=== PATIENT | male | born 1965 | race Two or more races ===

== ENCOUNTER 2017-03-19 20:15 | Emergency (ER) ==
[2017-03-19 20:28] VITALS: TEMP 99; BMI 24.7
--- NOTE | 2017-03-19 20:51 | ED.PDOC ---
General ED Provider: Dr. ADAL JARRETT Chief Complaint: Ankle Pain/Injury Stated Complaint: Reports a 5 day history of right ankle pain not improving with Tylenol. Time Seen by Physician: 20:49 Mode of Arrival: Walk-In Information Source: Patient Exam Limitations: No limitations Primary Care Provider: NILSON ULRICH Nursing and Triage Documentation Reviewed and Agree: Yes Musculoskeletal Complaint Exam - Ankle/Foot Complaint/Exam Location of Injury: Reports: Right, Ankle Mechanism of Injury: Reports: No known trauma Onset/Duration: 5 days Symptoms Are: Reports: Still present Initial Severity: Moderate Current Severity: Moderate Location: Reports: Discrete (posterior right malleolus ) Character: Reports: Aching, Throbbing Alleviating: Reports: Rest Aggravating: Reports: Movement, Weight bearing Able to Bear Weight: Yes Associated Signs and Symptoms: Reports: Swelling. Denies: Redness, Bruising, Fever, Weakness, Numbness Related History: Reports: Similar episode Gout Risk Factors: Reports: >40 years old, Male, Hyperlipidemia Related Surgical History: Reports: None Lower Extremity Findings: Present: Swelling, Tenderness, Limited range of motion. Absent: Laceration Achilles Tendon Abnormality: No Tenderness: Present: Lateral malleolus Limited Range of Motion: Present: Inversion, Plantarflexion Ankle/Foot Picture: 1 - swelling and tenderness to palpation Review of Systems - Review Of Systems Constitutional: Reports: No symptoms Eyes: Reports: No symptoms Ears, Nose, Mouth, Throat: Reports: No symptoms Respiratory: Reports: No symptoms Cardiac: Reports: No symptoms GI: Reports: No symptoms Musculoskeletal: Reports: Gout, Joint pain, Joint swelling Neurological: Reports: No symptoms Endocrine: Reports: No symptoms Hematologic/Lymphatic: Reports: No symptoms All Other Systems: Reviewed and Negative Past Medical History - Past Medical History Endocrine: Reports: Dyslipidemia Cardiovascular: Reports: Hypertension Respiratory: Reports: None Hematological: Reports: None Gastrointestinal: Reports: None Genitourinary: Reports: None Neuro/Psych: Reports: None Musculoskeletal: Reports: Gout Cancer: Reports: None - Surgical History General Surgical History: Reports: None - Family History Family History: Reports: Unknown - Social History Smoking Status: Never smoker Hx Substance Use: No Alcohol Screening: Occasionally - Immunizations Tetanus Shot up to Date: Yes Physical Exam - Physical Exam Appearance: Well-appearing, Well-nourished Pain Distress: Mild Eyes: GINO, EOMI, Conjunctiva clear ENT: Ears normal, Nose normal, Oropharynx normal Neck: Supple Respiratory: Airway patent, Breath sounds clear, Breath sounds equal, Respirations nonlabored Cardiovascular: RRR, Pulses normal, No rub, No murmur GI/: Soft, Nontender, No masses, Bowel sounds normal, No Organomegaly Musculoskeletal: Normal strength, No calf tenderness, Limited ROM, Edema (right ankle. ) Skin: Warm, Dry Neurological: Sensation intact, Motor intact, Reflexes intact, Cranial nerves intact, Alert, Oriented Psychiatric: Affect appropriate, Mood appropriate Interpretation - Radiology Interpretation Radiology Interpretation By: Radiologist Radiology Results: Negative Critical Care Note - Critical Care Note Total Time (mins): 0 Course - Course Orders, Labs, Meds: Orders Category Date Time Status ANKLE, RIGHT MIN 3 VIEWS Stat RADS 03/19/17 20:29 Taken FOOT, RIGHT 3 VIEWS Stat RADS 03/19/17 20:29 Taken Vital Signs: Temp Pulse Resp BP Pulse Ox 03/19/17 20:15 99 F 87 18 168/105 H 97 Departure - Departure Time of Disposition: 21:02 Disposition: HOME SELF-CARE Discharge Problem: Gout attack Qualifiers: Gout site: ankle Gout etiology: unspecified cause Laterality: right Qualifier Code: (M10.9) Gout, unspecified Instructions: Gout (ED) Condition: Stable Pt referred to PMD for follow-up: Yes Additional Instructions: Take Indocin as needed for pain Follow up with PCP in 3 days Prescriptions: Indomethacin 50 mg PO TID PRN #30 capsule PRN Reason: Foot pain Allergies/Adverse Reactions: Allergies No Known Drug Allergies Adverse Reaction (Verified 03/19/17 20:28) Home Medications: Ambulatory Orders Indomethacin 50 mg PO TID PRN #30 capsule 03/19/17 Disposition Discussed With: Patient, Family
--- NOTE | 2017-03-19 20:53 | DI ---
EXAM: Three views of the right ankle. History: Right ankle and foot pain. Findings: No acute fracture or dislocation. No abnormal calcifications or radiopaque foreign almaz s. Joint spaces are preserved. Question ankle joint effusion Impression: No acute osseous abnormality. Question ankle joint effusion
--- NOTE | 2017-03-19 20:54 | DI ---
EXAM: Three views of the right foot. History: Right ankle and foot pain. Findings: No acute fracture or dislocation. No abnormal calcifications or radiopaque foreign almaz s. Joint spaces are relatively preserved. Question ankle joint effusion. Impression: No acute osseous abnormality. Question ankle joint effusion.
[2017-03-19] MEDS ORDERED: COLCRYS PO STA (20:55)
[2017-03-19] MEDS ORDERED: INDOCIN PO STA (20:56)
[2017-03-19 21:15] VITALS: BP 148/97
== END 2017-03-19 21:16 | disposition home or self-care (01) ==
LOC: ED 20:15
DX: M10.9 Gout, unspecified (principal)
CPT/HCPCS: 99283

== ENCOUNTER 2018-02-22 23:29 | Emergency (ER) ==
[2018-02-22 23:49] VITALS: BP 159/96; TEMP 98.7; BMI 26.4
[2018-02-22] MEDS ORDERED: DECADRON 4 MG/ML SDV IM STA (23:56)
--- NOTE | 2018-02-22 23:59 | ED.PDOC ---
General ED Provider: Dr. SIMONE HYMAN Chief Complaint: Sore Throat Stated Complaint: Sore throat, coughing, eye are red. Time Seen by Physician: 23:57 Mode of Arrival: Walk-In Information Source: Patient Primary Care Provider: NILSON ULRICH Nursing and Triage Documentation Reviewed and Agree: Yes Reviewed sepsis parameters & appropriate labs ordered?: Yes System Inflammatory Response Syndrome: Not Applicable Sepsis Protocol: For patient's 13 years and over: Temp is 96.8 and below OR 101 and greater Pulse >90 BPM Resp >20/minute Acutely Altered Mental Status Are patient's symptoms suggestive of a new infection, such as: -Pneumonia -Skin, Soft Tissue -Endocarditis -UTI -Bone, Joint Infection -Implantable Device -Acute Abdominal Infection -Wound Infection -Meningitis -Blood Stream Catheter Infection -Unknown EENT Complaint Exam - Throat Complaint/Exam Symptoms Are: Still present Timimg: Constant Initial Severity: Mild Current Severity: Mild Aggravating: Reports: Eating Alleviating: Reports: None Associated Signs and Symptoms: Reports: Cough Related History: Reports: Similar Episode, Seasonal allergies Uvula Midline: No Kim-tonsillar Fluctuence: No Scarlatinaform Rash Present: No Stridor Present: No Sinus Tenderness Present: No Tonsillar Hypertrophy Present: No Tonsillar Exudate Present: No Kim-tonsillar Swelling Present: No Adenopathy Present: No Splenomegaly Present: No Differential Diagnoses: Pharyngitis Review of Systems - Review Of Systems Constitutional: Reports: No symptoms Eyes: Reports: No symptoms Ears, Nose, Mouth, Throat: Reports: Nose discharge, Throat pain Respiratory: Reports: Cough Cardiac: Reports: No symptoms GI: Reports: No symptoms : Reports: No symptoms Musculoskeletal: Reports: No symptoms Skin: Reports: No symptoms Neurological: Reports: No symptoms Endocrine: Reports: No symptoms Hematologic/Lymphatic: Reports: No symptoms All Other Systems: Reviewed and Negative Past Medical History - Past Medical History Previously Healthy: Yes Endocrine: Reports: Dyslipidemia Cardiovascular: Reports: Hypertension Respiratory: Reports: None Hematological: Reports: None Gastrointestinal: Reports: None Genitourinary: Reports: None Neuro/Psych: Reports: None Musculoskeletal: Reports: Gout Cancer: Reports: None - Surgical History General Surgical History: Reports: None - Family History Family History: Reports: Unknown - Social History Smoking Status: Never smoker Hx Substance Use: No Alcohol Screening: Occasionally - Immunizations Tetanus Shot up to Date: Yes Physical Exam - Physical Exam Appearance: Well-appearing, No pain distress, Well-nourished Eyes: GINO, EOMI, Conjunctiva clear ENT: Ears normal, Oropharynx normal, Erythema Respiratory: Airway patent, Breath sounds clear, Breath sounds equal, Respirations nonlabored Cardiovascular: RRR, Pulses normal, No rub, No murmur GI/: Soft, Nontender, No masses, Bowel sounds normal, No Organomegaly Musculoskeletal: Normal strength, ROM intact, No edema, No calf tenderness Skin: Warm, Dry, Normal color Neurological: Sensation intact, Motor intact, Reflexes intact, Cranial nerves intact, Alert, Oriented Psychiatric: Affect appropriate, Mood appropriate Critical Care Note - Critical Care Note Total Time (mins): 20 Course - Course Orders, Labs, Meds: Orders Category Date Time Status MOLECULAR GROUP A STREP Stat LAB 02/22/18 23:56 Uncollected Dexamethasone 4 mg/ml Inj [Decadron 4 mg/ml Sdv] MEDS 02/22/18 23:56 Stat 4 mg IM ONCE STA Vital Signs: Temp Pulse Resp BP Pulse Ox 02/22/18 23:43 98.7 F 83 20 159/96 H 97 Departure - Departure Time of Disposition: 23:59 Disposition: HOME SELF-CARE Discharge Problem: Sore throat symptom Instructions: Pharyngitis (ED) Condition: Stable Pt referred to PMD for follow-up: Yes IPMP verified?: No Additional Instructions: Increase Hydration Tylenol prn if not better come back Prescriptions: Amoxicillin/Potassium Clav [Augmentin 500-125 mg Tab] 1 tab PO Q12HR #20 tablet Neomycin/Polymyxin B/Dexametha [Noqovb-Wryrr-Pphnnazf Eye Drop] 5 ml OP TID #1 vial Prednisone 10 mg PO BIDWM #14 tablet Allergies/Adverse Reactions: Allergies No Known Drug Allergies Adverse Reaction (Verified 02/22/18 23:48) Home Medications: Ambulatory Orders Allopurinol [Zyloprim] 300 mg PO DAILY 02/22/18 Amoxicillin/Potassium Clav [Augmentin 500-125 mg Tab] 1 tab PO Q12HR #20 tablet 02/22/18 Hydrochlorothiazide 25 mg PO DAILY 02/22/18 Lovastatin 40 mg PO DAILY 02/22/18 Neomycin/Polymyxin B/Dexametha [Xpcmvq-Cownn-Bqyaftxa Eye Drop] 5 ml OP TID #1 vial 02/22/18 Phenylephrine/Dm/Acetaminop/GG [Mucinex Nssi-Zip-Ukubkfpqjp Lq] 5 ml PO Q6H PRN 02/22/18 Prednisone 10 mg PO BIDWM #14 tablet 02/22/18
== END 2018-02-23 00:25 | disposition home or self-care (01) ==
LOC: ED 23:29
DX: J02.9 Acute pharyngitis, unspecified (principal); R05 Cough
CPT/HCPCS: 87651; 96372; 99283

== ENCOUNTER 2018-12-27 15:28 | Outpatient (CLI) | END 2018-12-27 15:29 | disposition home or self-care (01) | LOC: LAB 15:28 | PROVIDERS: ATTEND Internal Medicine | DX: E78.5 Hyperlipidemia, unspecified (principal); I10 Essential (primary) hypertension; Z87.39 Personal history of other diseases of the musculoskeletal system and connective tissue | CPT/HCPCS: 36415; 80053; 80061; 84443; 85025 ==